=== PATIENT | female | born 1935 | race Caucasian/White ===

== ENCOUNTER 2016-10-27 00:08 | Inpatient (IN) ==
--- NOTE | 2016-10-27 00:35 | Emergency Department Note ---
Arrival - Arrival Chief Complaint: Fever Stated Complaint: Fever, abd pain ED Nursing Triage Note: C/C abd pain, fever, productive cough feeling bad started today. 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 Allergies/Adverse Reactions: Allergies Allergy/AdvReac Type Severity Reaction Status Date / Time codeine AdvReac Drowsy Verified 10/27/16 00:28 Home Medications: Home Medications Medication Instructions Recorded Confirmed Type Clorazepate [Tranxene] 7.5 mg PO BID 05/17/16 10/27/16 History Fluticasone Propionate 1 spray BOTH NARES DAILY 05/17/16 10/27/16 History [Fluticasone 50 mcg Nasal [place]] Insulin NPH/Regular 70/30 [HumuLIN 25 unit SUBCUT QAM 05/17/16 10/27/16 History 70/30] Levothyroxine Tab [Synthroid Tab] 112 mcg PO QPM 05/17/16 10/27/16 History Lisinopril 20 mg PO QPM 05/17/16 10/27/16 History Pentoxifylline [TRENtal] 400 mg PO TID 05/17/16 10/27/16 History Tramadol HCl/Acetaminophen 1 each PO Q6H PRN 05/17/16 10/27/16 History [Tramadol-Acetaminophn 37.5-325] Triamterene/Hydrochlorothiazid 1 each PO QPM 05/17/16 10/27/16 History [Triamterene-Hctz 37.5-25 mg Tb] Acetaminophen Tab [Tylenol Tab] 325 mg PO Q6H PRN #0 tablet 05/21/16 10/27/16 Rx Review of System - Review of System Constitutional: Present: chills, diaphoresis, fever. Absent: night sweats Eyes: Absent: redness, vision change, other Head/Ears/Nose/Throat: Absent: nasal drainage Respiratory: Absent: respiratory distress Cardiovascular: Present: other (Cough). Absent: palpitations, edema Gastrointestinal: Absent: nausea, vomiting, diarrhea Genitourinary female: Absent: dysuria, urgency Musculoskeletal: Present: lower back pain. Absent: joint swelling Skin: Absent: change in color, change in hair/nails, pruritus Neurological: Absent: numbness, paresthesias, confusion Psychiatric: Absent: suicidal thoughts, homicidal thoughts, auditory hallucinations Endocrine: Absent: heat intolerance, polydipsia, polyuria Hematological/Lymphatic: Absent: easy bruising, lymphadenopathy Allergic/Immunologic: Absent: urticaria, itchy eyes Medical,Surgical,& Family Hx - Medical History Cardio: History of: Hypertension Endocrine: History of: Diabetes Mellitus (IDDM), Thyroid Disorder Genitourinary: History of: Recurring Urinary Tract Infections Hematology: History of: Clotting Problems (DVT) - Surgical History Cardiac Surgeries: Sugical HX of: Femoral-Popliteal Bypass Graft Reproductive Surgeries: Surgical HX of;: Hysterectomy Orthopedic Surgeries: Surgical HX of;: Orthopedic Surgery (Left shoulder repair) , Total Knee Replacement (left) - Family History Family History: Reports;: Family Cancer, Family Hypertension Denies;: Family Anesthesia Reaction, Family Diabetes, Family Heart Disease, Family Psychiatric Problems, Family Stroke - Social History Smoking Status: Unknown if ever smoked Frequency of Alcohol Use: None Type of Drug Use: None Exam Vital Signs: Vital Signs Temperature 102.2 F H 10/27/16 01:05 Pulse Rate 122 H 10/27/16 00:10 Respiratory Rate 20 10/27/16 01:22 Blood Pressure 111/86 10/27/16 00:10 O2 Sat by Pulse Oximetry 91 L 10/27/16 00:10 - Eye Eye exam: Present: PERRL, EOMI - ENT ENT exam: Present: normal exam, normal oropharynx - Neck Neck exam: Present: normal inspection, full ROM - Chest Chest inspection: Present: normal inspection, symmetric chest wall rise - Respiratory Respiratory exam: Present: normal lung sounds bilaterally - Cardiovascular Cardiovascular exam: Present: tachycardia - Abdominal Exam Abdominal exam: Present: soft, normal bowel sounds - Extremities Exam Extremities exam: Present: normal inspection, full ROM - Back Exam Back exam: Present: normal inspection. Absent: CVA tenderness (R), CVA tenderness (L) - Neurological Exam Neurological exam: Present: alert, oriented X3 - Psychiatric Psychiatric exam: Present: normal affect, normal mood - Skin Skin exam: Present: warm, dry Course Course Narrative: The patient's clinical presentation and laboratory and x-ray workup indicates that she has sepsis with a source being pneumonia. She will be treated with IV fluids and antibiotics. The case was discussed with the hospitalist who agreed to admit her to the hospital. Results - Labs CBC & BMP: 10/27/16 00:34 10/27/16 00:34 Disposition Clinical Impression: Sepsis, Pneumonia Disposition: Still a Patient Additional Instructions: The patient's clinical presentation and laboratory and x-ray workup indicates that she has sepsis with a source being pneumonia. She will be treated with IV fluids and antibiotics. The case was discussed with the hospitalist who agreed to admit her to the hospital.
[2016-10-27] MEDS ORDERED: SODIUM CHLORIDE 0.9% 1,000 ML IV STA (00:40)
--- NOTE | 2016-10-27 00:44 | EKG Report ---
Stationary ECG Study [facility] ER Test Date: 10/27/2016 12:23:59 AM Pat Name: SANTOS CARTAGENA Department: Room: Gender: F Tobacco Sizer: : 1935 Requested by: Vazquez Carlos Order Number: [id number] Reading MD: YRN GREEN Intervals [place] Rate: 122 P: 49 LA: 182 QRS: -41 QRSD: 103 T: 59 QT: 315 QTc: 388 Interpretive Statements SINUS TACHYCARDIA with 1AVB LAFB Electronically Signed On 10-27-16 07:35:07 CDT by YRN GREEN [email or web address]
[2016-10-27] MEDS ORDERED: ACETAMINOPHEN 500 MG TABLET PO STA ×2 (00:58→01:04)
[2016-10-27] MEDS ORDERED: ACETAMINOPHEN 500 MG TABLET ONE (01:01)
[2016-10-27] MEDS ORDERED: PIPERACILLIN/TAZOBACTAM 3,375 MG in SODIUM CHLORIDE 0.9% 100 ML IV STA (01:04)
[2016-10-27 01:05] LABS: Basophils % 0.5 % (0.0-0.8); Hematocrit 36.3 VOL% (35.7-47.0); Hemoglobin 11.5 GM/DL (12.0-16.0); Immature Granulocytes % 0.2 %; Immature Granulocytes Absolute 0.01 #; Lymphocytes # 0.7 10*3/uL (1.4-4.0); Lymphocytes % 10.6 % (21.3-54.2); Mean Corpuscular HGB Conc 31.7 GM/DL (32-36); Mean Corpuscular Hemoglobin 26 PG (27-34); Mean Corpuscular Volume 83.3 FL (87-102); Mean Platelet Volume 11.4 FL (9.6-12.0); Monocytes # 0.4 10*3/uL (0.11-0.8); Monocytes % 5.9 % (1.7-12.7); Neutrophils # 5.1 10*3/uL (1.4-7.4); Neutrophils % 82.8 % (38.7-73.9); Platelet Count 138 T/CUMM (130-400); Red Blood Count 4.36 MC/CUMM (3.8-5.5); Red Cell Distribution Width 14.7 % (9.3-17.3); White Blood Count 6.1 T/CUMM (4-12)
[2016-10-27] MEDS ORDERED: VANCOMYCIN INJ 1,000 MG in SODIUM CHLORIDE 0.9% 250 ML IV STA (01:05)
[2016-10-27] MEDS ORDERED: PIPERACILLIN/TAZOBACTAM 3,375 MG VIAL IV ONE (01:12)
[2016-10-27] MEDS ORDERED: SODIUM CHLORIDE 0.9% 100 ML IV ONE (01:13)
[2016-10-27 01:24] LABS: Apearance,Urine Slightly Hazy (Clear); Bacteria,Urine Occasional /HPF (Few); Bilirubin,Urine Negative (Negative); Blood, Urine Negative (Negative); Glucose,Urine (UA) Negative (Negative); Granular Casts,Urine 4 /LPF (0-1); Hyaline Casts,Urine 10 /LPF (0-3); Ketones,Urine Negative (Negative); Mucus,Urine Occasional /LPF (Occasional); Nitrite,Urine Negative (Negative); Protein,Urine 30 MG/DL; RBC,Urine 2 /HPF (0-4); Squamous Epithelial Cell,Urine Occasional /HPF (0-10); Urine Color Yellow (Yellow); Urine Specific Gravity 1.014 (1.001-1.035); Urine Urobilinogen < 2.0 EU/DL (0.2-1.0); WBC,Urine 1 /HPF (0-6)
[2016-10-27 01:26] LABS: Albumin 2.6 G/DL (3.4-5.0); Bilirubin,Total 0.4 MG/DL (0.2-1.0); Calcium 8.8 MG/DL (8.5-10.1); Osmolality,Calculated 294.6 MOS/KG (273-304); Potassium 4.3 MMOL/L (3.5-5.1); Total Protein 6.3 G/DL (6.4-8.3)
[2016-10-27] MEDS ORDERED: VANCOMYCIN 1,000 MG VIAL ONE (02:19)
[2016-10-27 03:22] LABS: Band Neutrophils 5 % (0-10); Lymphocytes 13 % (20-55); Segmented Neutrophils 80 % (50-85)
[2016-10-27 03:27] LABS: Platelet Estimate Normal; Total Cells Counted 100
[2016-10-27] MEDS ORDERED: ALBUTEROL 1.25 MG/3 ML NEB RESP TX PRN (04:47)
[2016-10-27] MEDS ORDERED: ACETAMINOPHEN 325 MG TABLET PO PRN (04:47)
[2016-10-27] MEDS: LEVOFLOXACIN INJ 750 MG in PREMIX 1 EACH IV SCH (05:31)
--- NOTE | 2016-10-27 05:44 | Hospitalist History & Physical ---
Assessment and Plan - Time spent with patient Time spent with patient: Greater than 30 minutes (1) Sepsis Status: Acute Assessment and plan: Pending urine and blood cultures We will start on Levaquin and Zosyn to cover pneumonia and diverticulitis Blood work pending Currently afebrile Fluid resuscitation Current Visit: Yes (2) Pneumonia Status: Acute Current Visit: Yes (3) Diverticulitis Status: Acute Current Visit: Yes (4) Lesion of lung Status: Acute Assessment and plan: We will consult pulmonology Current Visit: Yes (5) Diabetes mellitus Status: Chronic Assessment and plan: We will restart home medication regimen once medications are confirmed Current Visit: No Qualifiers: Diabetes mellitus type: type 2 (6) Hypertension Status: Chronic Assessment and plan: We will restart medication regimen once home medications are confirmed Current Visit: No Qualifiers: Hypertension type: essential hypertension Qualified Code(s): I10 - Essential (primary) hypertension (7) Bladder tumor Status: Resolved Current Visit: No (8) Hypothyroidism Status: Chronic Assessment and plan: Will restart Synthroid once confirmed Current Visit: No History of Present Illness Chief complaint: fever and abdominal pain History of present illness: Called to the ER for Ms. Sanchez who is a 81 year old female who lives at home and presented to the ED tonight complaining of fever and abdominal pain. Patient said she vomited twice on Thursday but none on Thursday and has been having teeth chattering chills. No recorded temperature. Patient denies chest pain, shortness of breath, palpitations, weakness, dysuria, or diarrhea. She has a history of bladder cancer status post tumor removal, chronic low back pain , hypertension, heart murmur, hypothyroidism, diabetes. A CT chest abdomen and pelvis was performed which revealed pneumonia, a lesion to the upper lobe, and diverticulitis. She will be admitted into the ICU for closer monitoring due to her confusion and oxygen dependence. She received blood cultures and urine cultures. We will start her on Levaquin and Zosyn to cover pneumonia and diverticulitis. She received fluid resuscitation and routine blood work. Pulmonology will be consulted for the lesion in the upper lobe. Home Medications Medication Instructions Recorded Confirmed Type Clorazepate [Tranxene] 7.5 mg PO BID 05/17/16 10/27/16 History Fluticasone Propionate 1 spray BOTH NARES DAILY 05/17/16 10/27/16 History [Fluticasone 50 mcg Nasal [place]] Insulin NPH/Regular 70/30 [HumuLIN 25 unit SUBCUT QAM 05/17/16 10/27/16 History 70/30] Levothyroxine Tab [Synthroid Tab] 112 mcg PO QPM 05/17/16 10/27/16 History Lisinopril 20 mg PO QPM 05/17/16 10/27/16 History Pentoxifylline [TRENtal] 400 mg PO TID 05/17/16 10/27/16 History Tramadol HCl/Acetaminophen 1 each PO Q6H PRN 05/17/16 10/27/16 History [Tramadol-Acetaminophn 37.5-325] Triamterene/Hydrochlorothiazid 1 each PO QPM 05/17/16 10/27/16 History [Triamterene-Hctz 37.5-25 mg Tb] Acetaminophen Tab [Tylenol Tab] 325 mg PO Q6H PRN #0 tablet 05/21/16 10/27/16 Rx Allergies Allergy/AdvReac Type Severity Reaction Status Date / Time codeine AdvReac Drowsy Verified 10/27/16 00:28 Medical,Surgical,& Family Hx - Medical History Cardio: History of: Hypertension Endocrine: History of: Diabetes Mellitus (IDDM), Dyslipidemia, Thyroid Disorder Genitourinary: History of: Recurring Urinary Tract Infections, Genitourinary Cancer (bladder cancer) Musculoskeletal: History of: Musculoskeletal Problems (arthritis) Hematology: History of: Clotting Problems (DVT) - Surgical History Cardiac Surgeries: Sugical HX of: Femoral-Popliteal Bypass Graft Reproductive Surgeries: Surgical HX of;: Genitourinary Surgery (bladder growth removal), Hysterectomy Orthopedic Surgeries: Surgical HX of;: Orthopedic Surgery (Left shoulder repair) , Total Knee Replacement (left) - Family History Family History: Reports;: Family Cancer, Family Heart Disease (mother, brother) , Family Hypertension Denies;: Family Anesthesia Reaction, Family Diabetes, Family Psychiatric Problems, Family Stroke - Social History Smoking Status: Former smoker Have you smoked in the last 12 months: No Frequency of Alcohol Use: None Type of Drug Use: None Marital Status: Lives With:: Spouse Functional capacity: wheelchair bound - Constitutional Constitutional: Present: chills, fever(s), frequent falls. Absent: night sweats , weakness - EENT Nose, mouth and throat: Absent: sore throat - Cardiovascular Cardiovascular: Absent: chest pain at rest, chest pain with activity, dyspnea, edema, palpitations - Respiratory Respiratory: Absent: cough - Gastrointestinal Gastrointestinal: Present: abdominal pain (Left lower quadrant). Absent: diarrhea, heartburn, hematemesis, hematochezia, melena, nausea, vomiting - Genitourinary Genitourinary: Absent: abnormal vaginal bleeding Exam - Constitutional Vitals: Period Temp Pulse Resp BP Sys/Hensley Pulse Ox Last 24 Hr 102 F-102.2 F 122-122 20-20 111-111/86-86 91 General appearance: normal weight, no acute distress, other (Deconditioned) - Head Head exam: Present: normal inspection, normocephalic - Eye Eye exam: Present: EOMI Pupils: Present: CLAUDIA, normal accommodation - ENT ENT exam: Present: normal exam - Neck Neck exam: Present: normal inspection - Respiratory Respiratory exam: Present: clear to auscultation bilaterally, decreased breath sounds (Left lower lobe). Absent: accessory muscle use - Cardiovascular Cardiovascular exam: Present: regular rate and rhythm, systolic murmur - GI/Abdominal GI/Abdominal exam: Present: normal bowel sounds, firm, tenderness (Left lower quadrant), soft - Extremities Exam Extremities exam: Present: normal inspection, normal capillary refill, full ROM - Back Exam Back exam: Present: normal inspection - Neurological Exam Neurological exam: Present: alert (Oriented to person only. Able to answer most questions appropriately.). Absent: oriented X3 - Psychiatric Psychiatric exam: Present: flat affect - Skin Skin exam: Present: normal color, warm, dry, intact Results - Labs CBC & BMP: 10/27/16 00:34 10/27/16 00:34 Lab Results: I have reviewed the past 24 hour labs
[2016-10-27 06:20] LABS: Free T4 (Free Thyroxine) 1.49 NG/DL (0.76-1.46)
[2016-10-27 06:24] LABS: Troponin I Only 0.236 NG/ML (0.00-0.045)
--- NOTE | 2016-10-27 06:55 | Pulmonology Consult Note ---
Assessment and Plan (1) Bladder tumor Status: Resolved Assessment and plan: Had a transitional cell carcinoma removed from her bladder about [address] Gambino is following. 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 Current Visit: No (2) Sepsis Status: Acute Assessment and plan: She has received IV fluids and is on IV antibiotics. Pressure looks better. White blood count normal. Still has some tachycardia. Had fever to 102.2. Current Visit: Yes (3) Pneumonia Status: Acute Assessment and plan: Certainly appears to have a left lower lobe bronchopneumonia by CT scan. Getting Levaquin. Will add Zosyn Current Visit: Yes (4) Diverticulitis Status: Acute Assessment and plan: We will add Zosyn to the Levaquin. GI evaluation. Current Visit: Yes (5) Lesion of lung Status: Acute Assessment and plan: The right apical lung lesion is small and likely relatively old but do not have old films to compare. Can evaluate this once her acute illnesses controlled. Current Visit: Yes (6) Hypothyroidism Status: Chronic Assessment and plan: Looks like she may be on a little too much Synthroid. TSH is low and free T4 is slightly high. Reduce dose Current Visit: No (7) Obstructive sleep apnea Status: Acute Assessment and plan: This is based on clinical evaluation. She was lethargic. Now little more alert on facemask BiPAP. O2 sat is 100%. Will check ABGs and see if we can adjust O2. She is on 6 L +10/[address] Schilling is to see as well Current Visit: Yes History of Present Illness Chief complaint: Fever abdominal pain vomiting History of present illness: Ms. Sanchez is a 81 year old female who relates that she has been sick since Thursday. She comes in from home with fever and vomiting just going on a day or so however. She has a history of transurethral resection of a bladder cancer in May of this year. She is hypothyroid and is on Synthroid replacement. She is diabetic. She had a CT done in the emergency room showing probable diverticulitis, left lower lobe pneumonia, and a right apical lung lesion. There is not been a chest x-ray done on this admission or in the May admission. She is a former smoker Home Medications Medication Instructions Recorded Confirmed Type Clorazepate [Tranxene] 7.5 mg PO BID 05/17/16 10/27/16 History Fluticasone Propionate 1 spray BOTH NARES DAILY 05/17/16 10/27/16 History [Fluticasone 50 mcg Nasal [place]] Insulin NPH/Regular 70/30 [HumuLIN 25 unit SUBCUT QAM 05/17/16 10/27/16 History 70/30] Levothyroxine Tab [Synthroid Tab] 112 mcg PO QPM 05/17/16 10/27/16 History Lisinopril 20 mg PO QPM 05/17/16 10/27/16 History Pentoxifylline [TRENtal] 400 mg PO TID 05/17/16 10/27/16 History Tramadol HCl/Acetaminophen 1 each PO Q6H PRN 05/17/16 10/27/16 History [Tramadol-Acetaminophn 37.5-325] Triamterene/Hydrochlorothiazid 1 each PO QPM 05/17/16 10/27/16 History [Triamterene-Hctz 37.5-25 mg Tb] Acetaminophen Tab [Tylenol Tab] 325 mg PO Q6H PRN #0 tablet 05/21/16 10/27/16 Rx Allergies Allergy/AdvReac Type Severity Reaction Status Date / Time codeine AdvReac Drowsy Verified 10/27/16 00:28 12 point system: reviewed and no additional remarkable complaints except as stated - Constitutional Constitutional: Present: chills, fever(s), frequent falls - Gastrointestinal Gastrointestinal: Present: abdominal pain, nausea, vomiting Exam (Pulmonay) H&P - Constitutional Vitals: Period Temp Pulse Resp BP Sys/Hensley Pulse Ox Last 24 Hr 97.4 F-102.2 F 79-122 13-24 84-115/36-86 91-100 Exam: Temperature 102.2 last night. Afebrile this morning. Vital signs otherwise normal. Pupils react to light. Wearing facemask BiPAP. She is responsive. Neck is supple. Chest reveals some rales at the left base. Heart rapid rate regular rhythm no murmur. Abdomen soft. Bowel sounds present. Direct left lower quadrant tenderness noted. Extremities no clubbing cyanosis or edema. Calves nontender Medical,Surgical,& Family Hx - Medical History Cardio: History of: Hypertension Endocrine: History of: Diabetes Mellitus (IDDM), Dyslipidemia, Thyroid Disorder Genitourinary: History of: Recurring Urinary Tract Infections, Genitourinary Cancer (bladder cancer) Musculoskeletal: History of: Musculoskeletal Problems (arthritis) Hematology: History of: Clotting Problems (DVT) - Surgical History Cardiac Surgeries: Sugical HX of: Femoral-Popliteal Bypass Graft Reproductive Surgeries: Surgical HX of;: Genitourinary Surgery (bladder growth removal), Hysterectomy Orthopedic Surgeries: Surgical HX of;: Orthopedic Surgery (Left shoulder repair) , Total Knee Replacement (left) - Family History Family History: Reports;: Family Cancer, Family Heart Disease (mother, brother) , Family Hypertension Denies;: Family Anesthesia Reaction, Family Diabetes, Family Psychiatric Problems, Family Stroke - Social History Smoking Status: Former smoker Frequency of Alcohol Use: None Type of Drug Use: None Results - Labs CBC & BMP: 10/27/16 00:34 10/27/16 00:34 Lab Results: I have reviewed the past 24 hour labs - Diagnostic Findings Procedure: CT - chest: image reviewed by me (Left lower lobe infiltrate. Right apical lesion which is about 1 cm. No old CTs to compare.)
[2016-10-27] MEDS ORDERED: LEVOTHYROXINE 112 MCG TABLET PO SCH (07:00)
[2016-10-27] MEDS ORDERED: LEVOTHYROXINE 100 MCG TABLET PO SCH (07:05)
[2016-10-27 07:07] LABS: ABG Base Excess -2.1 MMOL/L (-2.5-2.5); ABG HCO3 22.7 MMOL/L (20-26); ABG Oxygen Saturation 98.8 % (95-100); ABG PCO2 44.1 MM HG (35-48); ABG PH 7.339 (7.35-7.45); ABG TCO2 21.9 MMOL/L (23-27); Pt O2 Delivery Device BIPAP
[2016-10-27] MEDS ORDERED: SODIUM CHLORIDE 0.45% 1,000 ML IV SCH (07:30)
--- NOTE | 2016-10-27 07:40 | CT Report ---
Exam: CT chest with intravenous contrast Clinical History: 81-year-old female with fever, possible sepsis Technique: Axial computed tomography images of the chest with intravenous contrast. The CT exam was performed using one or more of the following dose reduction techniques: Automated exposure control, adjustment of the mA and/or kV according to patient size, or use of iterative reconstruction technique. Contrast: 100 mL of Omnipaque 350 administered intravenously. Comparison: No relevant prior studies available Findings: Lungs: No mass. Interstitial thickening within the lung bases with hazy groundglass opacities, probably and bronchial plugging. Pleural spaces: No pneumothorax. No significant effusion Heart: No cardiomegaly. Atheromatous plaquing along pulmonary vessels. No pericardial effusion Mediastinum: Intact. Normal trachea Bones/joints: Intact. No acute fracture. No dislocation. Spondylitic changes throughout the spinal axis. Soft tissues: No radiopaque foreign body Vasculature: Intact. Atheromatous plaquing. Lymph nodes: No enlarged lymph nodes Impression: 1. Interstitial and groundglass opacifications within the lung bases, likely infectious process given associated bronchial plugging. Consider aspiration. Exam: CT abdomen and pelvis with intravenous contrast Exam date: October 27, 2016 at 0139 hours Clinical History: 81-year-old female with sepsis, fever Technique: Axial computed tomography images of the abdomen and pelvis with intravenous contrast. All CT scans at this facility use one or more dose reduction techniques. Automated exposure control, MA/KV adjustment per patient size (including targeted exam Square dose is matched to indication) or iterative reconstruction technique Contrast: 100 mL of Omnipaque 350 administered intravenously Comparison: May 18, 2016 Findings: Lower thorax: No acute pathologic findings at the lung bases Abdomen: Liver: Chronic granulomatous changes Gallbladder and bile ducts: Gallbladder is contracted. No calcified stones. No ductal dilatation. Pancreas: Pancreas is normal. Spleen: Granulomatous changes are noted. Adrenals: No adrenal mass. Kidneys and ureters: Kidneys are normal in size, morphology and enhancement. Stable right renal cyst. No hydronephrosis. No ureteral calculus. Stomach and bowel: Multiple diverticula along the distal colon. Mild mesocolonic stranding along the sigmoid colon. Appendix: Nonvisualized. No secondary signs to suggest appendicitis. Pelvis: Bladder: Unremarkable Reproductive: Prior hysterectomy. Abdomen and pelvis: Intraperitoneal space: No pneumoperitoneum. No significant intraperitoneal fluid Bones/joints: No acute osseous abnormality. Scoliosis with extensive spondylitic changes throughout the visualized spinal axis Soft tissues: No mass Vasculature: No aortic aneurysm. Diffuse atheromatous plaquing is noted. Occlusion of the within the thin bypass graft Lymph nodes: No adenopathy Impression: 1. Diverticulosis coli. Mild mesocolonic stranding along the sigmoid colon, scarring versus early diverticulitis 2. Occluded femoral-femoral bypass graft PROCEDURE INTERPRETED AT [facility] DEPARTMENT OF RADIOLOGY Final Report Signed by: Peña Ornelas
[2016-10-27] MEDS ORDERED: INSULIN NPH/REGULAR 70/30 100 UNIT/ML SUBCUT SCH (09:00)
[2016-10-27] MEDS: PIPERACILLIN/TAZOBACTAM 3,375 MG in SODIUM CHLORIDE 0.9% 100 ML IV SCH ×2 (10:00→17:13)
[2016-10-27 14:05] LABS: Troponin I Only 0.209 NG/ML (0.00-0.045)
[2016-10-27] MEDS ORDERED: SODIUM CHLORIDE 0.9% 500 ML IV ONE (15:28)
--- NOTE | 2016-10-27 15:45 | Hospitalist Progress Note ---
Assessment and Plan (1) Pneumonia Status: Acute Assessment and plan: Pulmonary was consulted. Continue Levaquin and Zosyn. We will get speech evaluation tomorrow. Current Visit: Yes (2) Hypothyroidism Status: Acute Assessment and plan: TSH is low and free T4 is high we will hold levothyroxine Current Visit: Yes (3) Diabetes mellitus Status: Chronic Assessment and plan: Blood sugars need to be checked every 6 hours I asked him to get a stat blood sugar if not seen but it has been checked since this morning, hold insulin Current Visit: No Qualifiers: Diabetes mellitus type: type 2 (4) Hypertension Status: Chronic Assessment and plan: Patient is hypotensive we will give normal saline bolus and run normal saline at 75 ML's per hour Current Visit: No Qualifiers: Hypertension type: essential hypertension Qualified Code(s): I10 - Essential (primary) hypertension (5) Sepsis Status: Acute Assessment and plan: Continue normal saline, lactic acid less than 2, blood cultures 2 pending, continue Zosyn and Levaquin Current Visit: Yes (6) Diverticulitis Status: Acute Assessment and plan: Continue Zosyn. Current Visit: Yes (7) Obstructive sleep apnea Status: Acute Assessment and plan: Patient will most likely not be tolerant of the sleep study at the age of [address]. [address] Schilling to evaluate. I have changed her from BiPAP to CPAP as her CO2 was not elevated. Current Visit: Yes Hospitalist: Subjective Interval history: Spoke with patient's son who lives in [facility]. His name is Logan Sanchez. His phone number is area code [phone]. We have switch patient over to CPAP. I have spoke with his son and he is okay with what we are doing thus far. Her living well states not to prolong her life and we have instituted a DNR. We will continue the CPAP for now and reevaluate tomorrow. Patient has deteriorated over the last few months after a fall. She was recently hospitalized in [place] but has not done well since discharge. We will reimage her hips to to ensure she does not have an occult fracture. She did have home health checking on her. She continues to be too lethargic to protect her airway at this time. I have spoken with her but he has wanted me to really have her son make decisions. He will be flying in from [place] when the weather permits. Exam - Constitutional Vitals: Period Temp Pulse Resp BP Sys/Hensley Pulse Ox Last 24 Hr 97.4 F-102.2 F 65-122 11-24 79-115/36-86 91-100 Exam: Heart Rate-[RRR] Lungs-[diminished not taking deep breaths] GI-[+bs soft, NT] Ext-[no edema] Neuro [cannot assess, too lethargic. psych too lethargic to assess General [moderate acute distress] Results - Labs CBC & BMP: 10/27/16 00:34 10/27/16 00:34 Lab Results: I have reviewed the past 24 hour labs Labs: Serial troponins mildly elevated, TSH is low. - Diagnostic Findings Procedure: CT Abdomen and Pelvis: report reviewed by me (Diverticulitis), CT - chest: report reviewed by me (Left lower lobe bronchopneumonia) Quality Measures - VTE Contraindication to Mechanical VTE Prophylaxis: Local Inflammation
[2016-10-27 16:21] LABS: Troponin I Only 0.244 NG/ML (0.00-0.045)
[2016-10-27] MEDS: SODIUM CHLORIDE 0.9% 1,000 ML IV SCH (16:31)
--- NOTE | 2016-10-27 16:37 | Sleep Medicine Consult ---
Assessment and Plan (1) Obstructive sleep apnea Status: Acute Assessment and plan: It is certainly possible that this patient has sleep apnea based on her history and physical findings. She is critically ill at present and we are unable to assess her currently. I would recommend setting her up for outpatient polysomnography after stabilization medically. We can follow-up in the sleep clinic with her evaluation. Thank you for this consult. Current Visit: Yes (2) Hypertension Status: Chronic Assessment and plan: The prevalence rate for obstructive sleep apnea patients with hypertension is 35 %. That rate can be as high as 80% in patients who require 4 or more medications for blood pressure control. Current Visit: No Qualifiers: Hypertension type: essential hypertension Qualified Code(s): I10 - Essential (primary) hypertension (3) Diabetes mellitus Status: Chronic Assessment and plan: The prevalence rate for obstructive sleep apnea in patients with type 2 diabetes can be as high as 86%. Those patients with moderate to severe obstructive sleep apnea are at a greater risk for diabetic nephropathy and neuropathy. Compliance with CPAP therapy for these patients can lead to improvement in glycemic control and improvement in insulin sensitivity. Current Visit: No Qualifiers: Diabetes mellitus type: type 2 History of Present Illness Chief complaint: Sleep apnea History of present illness: Ms. Sanchez is a 81 year old female admitted with sepsis from left lower lobe pneumonia. She has significant past medical history of diabetes and hypothyroidism. She lives at home with her . During the course of her evaluation, there was concern for sleep apnea. She is on CPAP at present and has been on BiPAP. She has had significant issues with hypoxia and is required BiPAP or CPAP therapy to maintain normal O2 sats. She is much more alert this afternoon according to nurses. She does acknowledge a history of snoring and sometimes will awaken from sleep short of breath. She has never been told that she stops breathing during her sleep. She does have problems with nocturia nightly and with daytime fatigue and sleepiness. Home Medications Medication Instructions Recorded Confirmed Type Clorazepate [Tranxene] 7.5 mg PO BID 05/17/16 10/27/16 History Fluticasone Propionate 1 spray BOTH NARES DAILY 05/17/16 10/27/16 History [Fluticasone 50 mcg Nasal Holiday] Insulin NPH/Regular 70/30 [HumuLIN 25 unit SUBCUT QAM 05/17/16 10/27/16 History 70/30] Levothyroxine Tab [Synthroid Tab] 112 mcg PO QPM 05/17/16 10/27/16 History Lisinopril 20 mg PO QPM 05/17/16 10/27/16 History Pentoxifylline [TRENtal] 400 mg PO TID 05/17/16 10/27/16 History Tramadol HCl/Acetaminophen 1 each PO Q6H PRN 05/17/16 10/27/16 History [Tramadol-Acetaminophn 37.5-325] Triamterene/Hydrochlorothiazid 1 each PO QPM 05/17/16 10/27/16 History [Triamterene-Hctz 37.5-25 mg Tb] Acetaminophen Tab [Tylenol Tab] 325 mg PO Q6H PRN #0 tablet 05/21/16 10/27/16 Rx Allergies Allergy/AdvReac Type Severity Reaction Status Date / Time codeine AdvReac Drowsy Verified 10/27/16 00:28 Review of systems: Otherwise unremarkable from a sleep medicine standpoint. Exam (Pulmonay) H&P - Constitutional Vitals: Period Temp Pulse Resp BP Sys/Hensley Pulse Ox Last 24 Hr 97.4 F-102.2 F 65-122 11-24 79-115/36-86 91-100 Exam: She is alert and responsive. She does answer most all questions appropriately. She seems to be slightly confused though. She is holding her right arm over her head. Pupils equal round reactive to light and accommodation. Extraocular movements intact. Oropharynx with a class IV Mallampati exam and dry oral mucosa. Neck supple without adenopathy or thyromegaly. No supraclavicular adenopathy is noted. Chest with fair air movement and no significant wheeze or rhonchi. Cardiac exam reveals a regular rhythm without murmur or gallop. Abdomen soft nontender extremities without significant edema. Neurologically, she is grossly intact. Medical,Surgical,& Family Hx - Medical History Cardio: History of: Hypertension Endocrine: History of: Diabetes Mellitus (IDDM), Dyslipidemia, Thyroid Disorder Genitourinary: History of: Recurring Urinary Tract Infections, Genitourinary Cancer (bladder cancer) Musculoskeletal: History of: Musculoskeletal Problems (arthritis) Hematology: History of: Clotting Problems (DVT) - Surgical History Cardiac Surgeries: Sugical HX of: Femoral-Popliteal Bypass Graft Reproductive Surgeries: Surgical HX of;: Genitourinary Surgery (bladder growth removal), Hysterectomy Orthopedic Surgeries: Surgical HX of;: Orthopedic Surgery (Left shoulder repair) , Total Knee Replacement (left) - Family History Family History: Reports;: Family Cancer, Family Heart Disease (mother, brother) , Family Hypertension Denies;: Family Anesthesia Reaction, Family Diabetes, Family Psychiatric Problems, Family Stroke - Social History Smoking Status: Former smoker Frequency of Alcohol Use: None Type of Drug Use: None Results - Labs CBC & BMP: 10/27/16 00:34 10/27/16 00:34 Lab Results: I have reviewed the past 24 hour labs Quality Measures - VTE Contraindication to Mechanical VTE Prophylaxis: Local Inflammation
[2016-10-27] MEDS: ALBUTEROL/IPRATROPIUM 3 ML NEB RESP TX SCH (20:02)
--- NOTE | 2016-10-27 20:08 | XRay Report ---
History: Injury. Recent fall. Unable to walk Date: 10/27/2016 Study: Bilateral hips 2 views Comparison exam: Left femur x-ray May 17, 2016 No acute fracture or dislocation is seen. There is osteopenia. There is mild osteophyte formation and joint space narrowing associated with either hip. Impression: No definite acute fracture. Mild osteoarthritis. Osteopenia PROCEDURE INTERPRETED AT [facility] DEPARTMENT OF RADIOLOGY Final Report Signed by: Dr. Christen Solares
[2016-10-28] MEDS: ALBUTEROL/IPRATROPIUM 3 ML NEB RESP TX SCH ×4 (01:11→19:28)
[2016-10-28] MEDS: PIPERACILLIN/TAZOBACTAM 3,375 MG in SODIUM CHLORIDE 0.9% 100 ML IV SCH ×3 (01:58→16:58)
[2016-10-28 04:19] LABS: Basophils % 0.4 % (0.0-0.8); Hematocrit 31.5 VOL% (35.7-47.0); Hemoglobin 9.8 GM/DL (12.0-16.0); Immature Granulocytes % 0.2 %; Immature Granulocytes Absolute 0.02 #; Lymphocytes % 23.7 % (21.3-54.2); Mean Corpuscular HGB Conc 31.1 GM/DL (32-36); Mean Corpuscular Hemoglobin 26 PG (27-34); Mean Corpuscular Volume 84.9 FL (87-102); Mean Platelet Volume 10.9 FL (9.6-12.0); Monocytes # 0.5 10*3/uL (0.11-0.8); Monocytes % 5.5 % (1.7-12.7); Neutrophils # 5.8 10*3/uL (1.4-7.4); Neutrophils % 70.2 % (38.7-73.9); Platelet Count 109 T/CUMM (130-400); Red Blood Count 3.71 MC/CUMM (3.8-5.5); Red Cell Distribution Width 15.2 % (9.3-17.3); White Blood Count 8.2 T/CUMM (4-12)
[2016-10-28 04:58] LABS: Alanine Aminotransferase 18 U/L (13-56); Albumin 2.1 G/DL (3.4-5.0); Alkaline Phosphatase 76 U/L (45-117); Aspartate Amino Transferase 32 U/L (0-37); Bilirubin,Total < 0.39 MG/DL (0.2-1.0); Blood Urea Nitrogen 24 MG/DL (7-18); Glucose 97 MG/DL (74-106); Osmolality,Calculated 295.4 MOS/KG (273-304); Potassium 4.4 MMOL/L (3.5-5.1); Sodium 147 MMOL/L (136-145); Total Protein 5.5 G/DL (6.4-8.3)
[2016-10-28] MEDS: SODIUM CHLORIDE 0.9% 1,000 ML IV SCH ×2 (06:13→09:33)
--- NOTE | 2016-10-28 06:59 | Pulmonology Progress Note ---
Pulmonary - PN: Subj Interval history: This 81-year-old white female is now more alert she is confused. She has a clear-cut lower lobe pneumonia and diverticulitis and is on antibiotics. She thinks that she traveled to [place] yesterday. Exam (Progress Note) - Constitutional Vitals: Period Temp Pulse Resp BP Sys/Hensley Pulse Ox Last 24 Hr 98.0 F-98.5 F 65-89 11-24 79-172/35-90 93-100 Exam: She is alert responsive but confused. Vital signs normal. Pupils react to light. Throat is clear. Neck supple no bruits. Chest reveals some bilateral rhonchi. Otherwise clear. Heart normal rate and rhythm no murmurs. Abdomen soft no masses. Mild direct left lower quadrant tenderness. Extremities no clubbing cyanosis edema. Calves nontender. 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 Gambino is following. 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 Current Visit: No (2) Sepsis Status: Acute Assessment and plan: She has received IV fluids and is on IV antibiotics. Pressure looks better. White blood count normal. Still has some tachycardia. Had fever to 102.2. 10/28/2016 septic signs are improved. Patient more alert but continues to be confused. Not sure about her pre-morbid mental status. Current Visit: Yes (3) Pneumonia Status: Acute Assessment and plan: Certainly appears to have a left lower lobe bronchopneumonia by CT scan. Getting Levaquin. Will add Zosyn. I note she is already on Zosyn. 10/28/2016 adequately oxygenated and afebrile. Continuing Levaquin and Zosyn. Current Visit: Yes (4) Diverticulitis Status: Acute Assessment and plan: We will add Zosyn to the Levaquin. GI evaluation. 10/28/2016 continuing antibiotics. GI following. Current Visit: Yes (5) Lesion of lung Status: Acute Assessment and plan: The right apical lung lesion is small and likely relatively old but do not have old films to compare. Can evaluate this once her acute illnesses controlled. 10/28/2016 this will await improvement from acute pulmonary and colon infections. Current Visit: Yes (6) Hypothyroidism Status: Chronic Assessment and plan: Looks like she may be on a little too much Synthroid. TSH is low and free T4 is slightly high. Reduce dose Current Visit: No (7) Obstructive sleep apnea Status: Acute Assessment and plan: This is based on clinical evaluation. She was lethargic. Now little more alert on facemask BiPAP. O2 sat is 100%. Will check ABGs and see if we can adjust O2. She is on 6 L +10/[address] Schilling is to see as well 10/28/2016 Dr. Peña plans to evaluate this given time. Patient is alert and has good O2 sat on nasal oxygen this morning Current Visit: Yes
[2016-10-28 08:06] LABS: Allen Test Positive
[2016-10-28 08:08] LABS: ABG Base Excess -3.1 MMOL/L (-2.5-2.5); ABG HCO3 22.1 MMOL/L (20-26); ABG Oxygen Saturation 96.6 % (95-100); ABG PCO2 40.2 MM HG (35-48); ABG PH 7.359 (7.35-7.45); ABG TCO2 23.4 MMOL/L (23-27)
--- NOTE | 2016-10-28 09:08 | XRay Report ---
Portable chest Exam date: 10/28/2016 4:00 AM Indication: Shortness of breath, cough Comparison: CT performed previous day at 0135 hours Findings: Cardiomediastinal contours are normal. Lungs are clear bilaterally. No acute osseous abnormalities. Remote right rib fracture/deformity is noted. Left shoulder arthroplasty appears intact. Visualized upper abdomen demonstrates no acute pathology. Impression: No acute cardiopulmonary findings PROCEDURE INTERPRETED AT [facility] DEPARTMENT OF RADIOLOGY Final Report Signed by: Peña Ornelas
--- NOTE | 2016-10-28 11:57 | Hospitalist Progress Note ---
Assessment and Plan (1) Pneumonia Status: Acute Assessment and plan: Dr. Delarosa following, Continue Levaquin and Zosyn. We will get speech evaluation today Current Visit: Yes (2) Hypothyroidism Status: Acute Assessment and plan: cont to hold levothyroxine Current Visit: Yes (3) Diabetes mellitus Status: Chronic Assessment and plan: BS better today, change to q ac and q hs. Insulin sliding scale started, will tolerated pured Current Visit: No Qualifiers: Diabetes mellitus type: type 2 (4) Hypertension Status: Chronic Assessment and plan: Hypotension has resolved we will switch to half-normal saline. Current Visit: No Qualifiers: Hypertension type: essential hypertension Qualified Code(s): I10 - Essential (primary) hypertension (5) Sepsis Status: Acute Assessment and plan: Resolving with antibiotics Current Visit: Yes (6) Diverticulitis Status: Acute Assessment and plan: Continue Zosyn. Current Visit: Yes (7) Obstructive sleep apnea Status: Acute Assessment and plan: Dr. Schilling has seen her and recommends an outpatient sleep study Current Visit: Yes (8) Hypernatremia Status: Acute Assessment and plan: Continue half-normal saline Current Visit: Yes Hospitalist: Subjective Interval history: Patient is much more alert and responsive today. She is off her CPAP and doing well. Her blood pressure is stable today. We will move her out of the CCU. I have already spoken with her son and given him an update. He is currently still in [place]. Patient was pleasantly confused and does have baseline dementia according to her son. He would like her to go to a swing bed in [place] for rehab. Patient running high fevers yesterday which are better today. Exam - Constitutional Vitals: Period Temp Pulse Resp BP Sys/Hensley Pulse Ox Last 24 Hr 97.5 F-98.5 F 65-96 11-24 96-172/35-98 93-98 Exam: Heart Rate-[tachy] Lungs-[bilateral rhonchi] GI-[+bs soft, NT] Ext-[no edema] Neuro [alert and oriented to name today, cannot cooperate with motor exam yet psych pleasantly demented General [no acute distress] Results - Labs CBC & BMP: 10/28/16 03:41 10/28/16 03:41 Lab Results: I have reviewed the past 24 hour labs Labs: Urine and blood cultures negative no growth - Diagnostic Findings Procedure: Chest x-ray: report reviewed by me (Negative chest x-ray) Quality Measures - VTE Contraindication to Mechanical VTE Prophylaxis: Local Inflammation
[2016-10-28] MEDS ORDERED: DEXTROSE 50% 25 GM/50 ML SYRINGE IV PRN (12:04)
[2016-10-28] MEDS ORDERED: GLUCAGON 1 MG VIAL IM PRN (12:04)
[2016-10-28] MEDS: SODIUM CHLORIDE 0.45% 1,000 ML IV SCH (13:40)
[2016-10-28] MEDS: INSULIN LISPRO 100 UNIT/ML SUBCUT SCH ×2 (16:59→22:14)
[2016-10-28] MEDS: CLORAZEPATE 3.75 MG TABLET PO SCH (21:14)
[2016-10-28] MEDS: MUPIROCIN 2% OINT 22 GM TUBE TOP SCH (21:14)
[2016-10-28] MEDS: PENTOXIFYLLINE 400 MG TABLET PO SCH (21:14)
[2016-10-29] MEDS: ALBUTEROL/IPRATROPIUM 3 ML NEB RESP TX SCH ×4 (00:39→20:31)
[2016-10-29] MEDS: PIPERACILLIN/TAZOBACTAM 3,375 MG in SODIUM CHLORIDE 0.9% 100 ML IV SCH ×3 (01:40→17:40)
[2016-10-29] MEDS: SODIUM CHLORIDE 0.45% 1,000 ML IV SCH (03:00)
[2016-10-29] MEDS: LEVOFLOXACIN INJ 750 MG in PREMIX 1 EACH IV SCH (05:48)
--- NOTE | 2016-10-29 07:15 | Pulmonology Progress Note ---
Pulmonary - PN: Subj Interval history: This 81-year-old white female is now more alert she is confused. She has a clear-cut lower lobe pneumonia and diverticulitis and is on antibiotics. She thinks that she traveled to [place] yesterday. 10/29/2016 patient's chest x-ray looks almost clear but we know she has a left basilar infiltrate seen on CT. O2 sat is 95% on room air. Patient is responsive but confused. Cultures have been negative. We will stop Levaquin as this sometimes can add to confusion. Continue with Zosyn. Probably needs another 3 days of antibiotics for her pneumonia. Could change to oral antibiotics if she is discharged to swing bed. Exam (Progress Note) - Constitutional Vitals: Period Temp Pulse Resp BP Sys/Hensley Pulse Ox Last 24 Hr 97.4 F-98.1 F 83-109 12- 112-180/50-99 91-99 Exam: She is alert responsive but confused. Vital signs normal. O2 sat 95% on room air. Pupils react to light. Throat is clear. Neck supple no bruits. Chest reveals some bilateral rhonchi. Otherwise clear. Heart normal rate and rhythm no murmurs. Abdomen soft no masses. Mild direct left lower quadrant tenderness. Extremities no clubbing cyanosis edema. Calves nontender. Results - Labs CBC & BMP: 10/28/16 03:41 10/28/16 03:41 Lab Results: I have reviewed the past 24 hour labs - Diagnostic Findings Procedure: Chest x-ray: image reviewed by me (Minimal left basilar infiltrate essentially clear. 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 Gambino is following. 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 Current Visit: No (2) Sepsis Status: Acute Assessment and plan: She has received IV fluids and is on IV antibiotics. Pressure looks better. White blood count normal. Still has some tachycardia. Had fever to 102.2. 10/28/2016 septic signs are improved. Patient more alert but continues to be confused. Not sure about her pre-morbid mental status. 10/29/2016 sepsis controlled. Patient is confused but has history of dementia. Current Visit: Yes (3) Pneumonia Status: Acute Assessment and plan: Certainly appears to have a left lower lobe bronchopneumonia by CT scan. Getting Levaquin. Will add Zosyn. I note she is already on Zosyn. 10/28/2016 adequately oxygenated and afebrile. Continuing Levaquin and Zosyn. 10/29/2016 afebrile, O2 sat 95% on room air, chest x-ray almost clear minimal left basilar infiltrate. Stop Levaquin because of possible effects on [employer] function. Needs about 3 more days of antibiotics. Could change to oral Augmentin if need be if she goes to swing bed. Current Visit: Yes (4) Diverticulitis Status: Acute Assessment and plan: We will add Zosyn to the Levaquin. GI evaluation. 10/28/2016 continuing antibiotics. GI following. Current Visit: Yes (5) Lesion of lung Status: Acute Assessment and plan: The right apical lung lesion is small and likely relatively old but do not have old films to compare. Can evaluate this once her acute illnesses controlled. 10/28/2016 this will await improvement from acute pulmonary and colon infections. 10/29/2016. Her mental status I would not be in a hurry to evaluate the right apical nodule. Would have her come back for a PET scan outpatient. Current Visit: Yes (6) Hypothyroidism Status: Chronic Assessment and plan: Looks like she may be on a little too much Synthroid. TSH is low and free T4 is slightly high. Reduce dose Current Visit: No (7) Obstructive sleep apnea Status: Acute Assessment and plan: This is based on clinical evaluation. She was lethargic. Now little more alert on facemask BiPAP. O2 sat is 100%. Will check ABGs and see if we can adjust O2. She is on 6 L +10/[address] Schilling is to see as well 10/28/2016 Dr. Schilling plans to evaluate this given time. Patient is alert and has good O2 sat on nasal oxygen this morning Current Visit: Yes
--- NOTE | 2016-10-29 07:45 | XRay Report ---
Portable chest Exam date: 10/29/2016 4:00 AM Indication: Shortness of breath, cough Comparison: Previous day at 0314 hours Findings: Cardiomediastinal contours are stable. Lungs are clear bilaterally. No acute osseous abnormalities. Left shoulder arthroplasty is again noted. Visualized upper abdomen demonstrates no acute pathology. Impression: No acute cardiopulmonary findings PROCEDURE INTERPRETED AT [facility] DEPARTMENT OF RADIOLOGY Final Report Signed by: Peña Ornelas
[2016-10-29] MEDS: MUPIROCIN 2% OINT 22 GM TUBE TOP SCH ×2 (08:41→21:34)
[2016-10-29] MEDS: INSULIN LISPRO 100 UNIT/ML SUBCUT SCH ×4 (08:42→21:34)
[2016-10-29] MEDS: CLORAZEPATE 3.75 MG TABLET PO SCH ×2 (08:49→21:34)
[2016-10-29] MEDS: PENTOXIFYLLINE 400 MG TABLET PO SCH ×3 (08:50→21:34)
--- NOTE | 2016-10-29 11:25 | Physician Query Form ---
CLICK EDIT DOCUMENT TO SELECT QUERY ANSWER --> OK --> SIGN Angélica Guzman RN Clinical Senior Dot Net Developer W) [phone] (f) [phone] [email or web address]: Make your selection(s) from the choices in EACH section by typing an "x" and enter comments in the comment section. Please use your independent medical judgment in providing your response. This request does not imply that any particular answer is desired or expected. CLINICAL INDICATORS: (Providers should not edit this section) Based on documentation of "Acute Sepsis" "Acute PNA" "Acute Diverticulitis" Acute hypernatremia" "admitted to ICU for closer monitoring due to her confusion and oxygen dependence" "Responsive but confused" "Thinks that she traveled to [place] yesterday" Treated with Oxygen, IV fluids changed to 1/2 NS infusion, IV Zosyn, and IV Vancomycin. ACUITY: ( ) Acute ( x) Acute on Chronic ( ) Chronic ( ) Clinically unable to determine NATURE: ( ) Delirium due to general medical condition (x ) Dementia ( ) Encephalopathy ( ) Unconscious ( ) Transient level of awareness ( ) Comatose ( ) Locked-in State ( ) Persistent Vegetative State ( ) Other, please specify: ( ) Clinically unable to determine Please indicate the underlying cause of the altered mental status (CHECK ALL THAT APPLY): ( ) Baseline dementia (x ) Alzheimer's disease ( ) Parkinson's disease ( ) Lewy body dementia ( ) Acute stroke ( ) Late effect of stroke ( ) Reactive (from emotional stress, psychological trauma) ( ) Due to narcotics/other drugs ( ) Post procedural delirium ( ) Transient ischemic attack ( ) Generalized cerebral edema ( ) Normal pressure hydrocephalus ( ) Psychiatric illness ( ) Other, please specify: ( ) Clinically unable to determine Please indicate if there is an infection, sepsis, dehydration or specific organ failure that is causing the dementia. Be specific with clarifying the relationship between that process and the mental status change. COMMENTS: PLEASE ALSO DOCUMENT RESPONSE IN PROGRESS NOTES AND/OR DISCHARGE SUMMARY Use of terms such as suspected, likely, or probable (associated with a specific diagnosis that is being evaluated, monitored, or treated as if it exists) are acceptable and can be restated in the discharge summary if not ruled out. MTDD
--- NOTE | 2016-10-29 12:17 | Hospitalist Progress Note ---
Assessment and Plan (1) Pneumonia Status: Acute Assessment and plan: Dr. Delarosa following, Continue Levaquin and Zosyn. Speech has seen her and does not see any overt signs and symptoms of aspiration recommend small bites and sips with chopped meats Current Visit: Yes (2) Hypothyroidism Status: Acute Assessment and plan: recheck free t4 in am Current Visit: Yes (3) Diabetes mellitus Status: Chronic Assessment and plan: BS too high continue insulin sliding scale. Her eating is not reliable. Current Visit: No Qualifiers: Diabetes mellitus type: type 2 (4) Hypertension Status: Chronic Assessment and plan: coreg 6.25 mg po bid Current Visit: No Qualifiers: Hypertension type: essential hypertension Qualified Code(s): I10 - Essential (primary) hypertension (5) Sepsis Status: Acute Assessment and plan: Resolving with antibiotics Current Visit: Yes (6) Diverticulitis Status: Acute Assessment and plan: Continue Zosyn. Current Visit: Yes (7) Obstructive sleep apnea Status: Acute Assessment and plan: Dr. Schilling has seen her and recommends an outpatient sleep study but I think it will make her more agitated Current Visit: Yes (8) Hypernatremia Status: Acute Assessment and plan: bmp in am Current Visit: Yes Hospitalist: Subjective Interval history: Patient is very demented and continues to be more agitated and confused. Patient is not an ICU patient she was supposed to move out to the floor yesterday but they did not have any beds again I put in transfer orders again today waiting for a bed. Patient needs a sitter when she is transferred to the floor. Exam - Constitutional Vitals: Period Temp Pulse Resp BP Sys/Hensley Pulse Ox Last 24 Hr 97.8 F-98.4 F 83-109 13-27 112-180/50-97 91-99 Exam: Heart Rate-[tachy] Lungs-[clear] GI-[+bs soft, NT] Ext-[no edema] Neuro [will not cooperate with an exam very agitated psych agitated and confused General [no acute distress] Results - Labs CBC & BMP: 10/28/16 03:41 10/28/16 03:41 Lab Results: I have reviewed the past 24 hour labs Labs: Urine culture negative downgrowth, blood cultures 2 negative no - Diagnostic Findings Procedure: Chest x-ray: report reviewed by me (Nothing acute) Quality Measures - VTE Contraindication to Mechanical VTE Prophylaxis: Local Inflammation
[2016-10-29] MEDS: CARVEDILOL 6.25 MG TABLET PO SCH ×2 (12:47→21:34)
[2016-10-30] MEDS: PIPERACILLIN/TAZOBACTAM 3,375 MG in SODIUM CHLORIDE 0.9% 100 ML IV SCH ×3 (00:55→18:08)
[2016-10-30] MEDS: ALBUTEROL/IPRATROPIUM 3 ML NEB RESP TX SCH ×4 (03:06→19:12)
[2016-10-30 06:16] LABS: Basophils % 0.5 % (0.0-0.8); Hematocrit 34.4 VOL% (35.7-47.0); Hemoglobin 11.2 GM/DL (12.0-16.0); Immature Granulocytes % 0.3 %; Immature Granulocytes Absolute 0.02 #; Lymphocytes # 1.5 10*3/uL (1.4-4.0); Lymphocytes % 20.8 % (21.3-54.2); Mean Corpuscular HGB Conc 32.6 GM/DL (32-36); Mean Corpuscular Hemoglobin 27 PG (27-34); Mean Corpuscular Volume 81.3 FL (87-102); Mean Platelet Volume 10.9 FL (9.6-12.0); Monocytes # 0.4 10*3/uL (0.11-0.8); Neutrophils # 5.4 10*3/uL (1.4-7.4); Neutrophils % 73.4 % (38.7-73.9); Platelet Count 165 T/CUMM (130-400); Red Blood Count 4.23 MC/CUMM (3.8-5.5); Red Cell Distribution Width 15.1 % (9.3-17.3); White Blood Count 7.4 T/CUMM (4-12)
[2016-10-30 07:02] LABS: Calcium 8.9 MG/DL (8.5-10.1); Magnesium 1.7 MG/DL (1.8-2.4); Osmolality,Calculated 290.7 MOS/KG (273-304); Potassium 4.4 MMOL/L (3.5-5.1)
[2016-10-30] MEDS: INSULIN LISPRO 100 UNIT/ML SUBCUT SCH ×4 (07:36→22:18)
[2016-10-30] MEDS: CLORAZEPATE 3.75 MG TABLET PO SCH (08:08)
[2016-10-30] MEDS: MUPIROCIN 2% OINT 22 GM TUBE TOP SCH ×2 (08:08→22:18)
[2016-10-30] MEDS: CARVEDILOL 6.25 MG TABLET PO SCH ×3 (08:08→22:21)
[2016-10-30] MEDS: PENTOXIFYLLINE 400 MG TABLET PO SCH ×4 (08:08→22:21)
--- NOTE | 2016-10-30 08:38 | Pulmonology Progress Note ---
Pulmonary - PN: Subj Interval history: This 81-year-old white female is now more alert she is confused. She has a clear-cut lower lobe pneumonia and diverticulitis and is on antibiotics. She thinks that she traveled to [place] yesterday. 10/29/2016 patient's chest x-ray looks almost clear but we know she has a left basilar infiltrate seen on CT. O2 sat is 95% on room air. Patient is responsive but confused. Cultures have been negative. We will stop Levaquin as this sometimes can add to confusion. Continue with Zosyn. Probably needs another 3 days of antibiotics for her pneumonia. Could change to oral antibiotics if she is discharged to swing bed. 10/30/2016 patient now on 5 E. Continues to be confused but a little bit less agitated. Apparently using CPAP at night. Exam (Progress Note) - Constitutional Vitals: Period Temp Pulse Resp BP Sys/Hensley Pulse Ox Last 24 Hr 97.4 F-100.3 F 85-109 12-23 107-166/76-99 94-100 Exam: She is alert responsive but confused. Vital signs normal. O2 sat 95% on room air. Pupils react to light. Throat is clear. Neck supple no bruits. Chest reveals some bilateral rhonchi. Otherwise clear. Heart normal rate and rhythm no murmurs. Abdomen soft no masses. Mild direct left lower quadrant tenderness. Extremities no clubbing cyanosis edema. Calves nontender. Little change from yesterday but less agitated. 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 Gambino is following. 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 Current Visit: No (2) Sepsis Status: Resolved Assessment and plan: She has received IV fluids and is on IV antibiotics. Pressure looks better. White blood count normal. Still has some tachycardia. Had fever to 102.2. 10/28/2016 septic signs are improved. Patient more alert but continues to be confused. Not sure about her pre-morbid mental status. 10/29/2016 sepsis controlled. Patient is confused but has history of dementia. 10/30/2016 no signs of sepsis now. Mental status is apparently back to her baseline dementia. Current Visit: Yes (3) Pneumonia Status: Acute Assessment and plan: Certainly appears to have a left lower lobe bronchopneumonia by CT scan. Getting Levaquin. Will add Zosyn. I note she is already on Zosyn. 10/28/2016 adequately oxygenated and afebrile. Continuing Levaquin and Zosyn. 10/29/2016 afebrile, O2 sat 95% on room air, chest x-ray almost clear minimal left basilar infiltrate. Stop Levaquin because of possible effects on UNDER CUTTER function. Needs about 3 more days of antibiotics. Could change to oral Augmentin if need be if she goes to swing bed. 10/30/2016 chest x-ray looks okay. Again needs 2 more days of antibiotics would contact him by mouth if she were to go to a swing bed or [facility]. Current Visit: Yes (4) Diverticulitis Status: Acute Assessment and plan: We will add Zosyn to the Levaquin. GI evaluation. 10/28/2016 continuing antibiotics. GI following. 10/30/2016 defer to GI as to further management of her diverticulitis. Current Visit: Yes (5) Lesion of lung Status: Acute Assessment and plan: The right apical lung lesion is small and likely relatively old but do not have old films to compare. Can evaluate this once her acute illnesses controlled. 10/28/2016 this will await improvement from acute pulmonary and colon infections. 10/29/2016. Her mental status I would not be in a hurry to evaluate the right apical nodule. Would have her come back for a PET scan outpatient. 10/30/2016 based on her age and mental status do not think we need to be aggressive on working up the right apical nodule. Would suggest doing a PET scan in 4-6 weeks. Current Visit: Yes (6) Hypothyroidism Status: Chronic Assessment and plan: Looks like she may be on a little too much Synthroid. TSH is low and free T4 is slightly high. Reduce dose 10/30/2016 we have reduced her dose of Synthroid a little Current Visit: No (7) Obstructive sleep apnea Status: Acute Assessment and plan: This is based on clinical evaluation. She was lethargic. Now little more alert on facemask BiPAP. O2 sat is 100%. Will check ABGs and see if we can adjust O2. She is on 6 L +10/[address] Schilling is to see as well 10/28/2016 Dr. Schilling plans to evaluate this given time. Patient is alert and has good O2 sat on nasal oxygen this morning Current Visit: Yes
--- NOTE | 2016-10-30 10:58 | Hospitalist Progress Note ---
Assessment and Plan (1) Pneumonia Status: Acute Assessment and plan: Continue Zosyn Current Visit: Yes (2) Hypothyroidism Status: Acute Assessment and plan: Restart levothyroxine Current Visit: Yes (3) Diabetes mellitus Status: Chronic Assessment and plan: BS controlled Current Visit: No Qualifiers: Diabetes mellitus type: type 2 (4) Hypertension Status: Chronic Assessment and plan: Continue Coreg Current Visit: No Qualifiers: Hypertension type: essential hypertension Qualified Code(s): I10 - Essential (primary) hypertension (5) Sepsis Status: Resolved Assessment and plan: Resolved Current Visit: Yes (6) Diverticulitis Status: Acute Assessment and plan: Asymptomatic and eating well continue Zosyn. Current Visit: Yes (7) Obstructive sleep apnea Status: Acute Assessment and plan: Continue CPAP at night Current Visit: Yes (8) Hypernatremia Status: Acute Assessment and plan: Resolved Current Visit: Yes Hospitalist: Subjective Interval history: Patient confused but less agitated. Sleeping when I came into the room. Physical therapy was sent to work with her. 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 Called her son with an update last night. Exam - Constitutional Vitals: Period Temp Pulse Resp BP Sys/Hensley Pulse Ox Last 24 Hr 97.4 F-100.3 F 84-109 12-23 107-166/76-99 94-99 Exam: Heart Rate-[RRR] Lungs-[clear] GI-[+bs soft, NT] Ext-[no edema] Neuro [sleeping psych sleeping unable to evaluate General [no acute distress] Results - Labs CBC & BMP: 10/30/16 05:06 10/30/16 05:06 Lab Results: I have reviewed the past 24 hour labs Labs: Blood cultures 2 negative, urine culture negative - Diagnostic Findings Procedure: Chest x-ray: report reviewed by me (Chest x-ray clear) Quality Measures - VTE Contraindication to Mechanical VTE Prophylaxis: Local Inflammation
[2016-10-30] MEDS ORDERED: MAGNESIUM SULF RIDER 2 GM in PREMIX 1 EACH IV ONE (11:00)
--- NOTE | 2016-10-30 12:24 | Sleep Medicine Progress Note ---
Assessment and Plan (1) Obstructive sleep apnea Status: Acute Assessment and plan: We will not proceed with any further sleep evaluation at this time. I did discuss this with Dr. Zamora and she is in agreement. Current Visit: Yes (2) Hypertension Status: Chronic Current Visit: No Qualifiers: Hypertension type: essential hypertension Qualified Code(s): I10 - Essential (primary) hypertension (3) Diabetes mellitus Status: Chronic Current Visit: No Qualifiers: Diabetes mellitus type: type 2 Sleep Medicine Subjective Interval history: Patient does look much better than she was when I saw her originally. However she still is poorly responsive. I do not think she would be a good candidate for further sleep evaluation. Exam (Progress Note) - Constitutional Vitals: Period Temp Pulse Resp BP Sys/Hensley Pulse Ox Last 24 Hr 97.4 F-99.3 F 84-100 12-20 107-164/76-99 94-99 Exam: Patient awake and will respond with a grunt. HEENT otherwise unremarkable. Neck supple without adenopathy chest with symmetrical breath sounds without wheeze or rhonchi. Cardiac exam reveals regular rhythm. Abdomen soft nontender extremities without calf tenderness or clubbing. Neurologically, she is poorly cooperative and responsive. Results - Labs CBC & BMP: 10/30/16 05:06 10/30/16 05:06 Lab Results: I have reviewed the past 24 hour labs
--- NOTE | 2016-10-30 13:44 | Case Mgmt Physician Query Form ---
TB Signs and Symptoms Screening ([place]) INSTRUCTIONS: To be completed annually on residents/staff with a significant Tuberculin Skin Test (TST) upon admission/hire or a prior significant TST. To be completed on all staff at hire. Please respond to each listed symptom with an (X) in either the "YES" or "NO" box. Do you currently have any of the following symptoms: YES NO ( ) ( x) A cough If yes, is it: ( ) Productive ( ) Non- productive ( ) ( x) Hemoptysis (spitting up blood) ( ) ( x) Chest pains ( ) (x ) Weight Loss ( ) (x ) Fever ( ) ( x) Night Sweats ( x) ( ) Weakness ( ) ( x) Loss of Appetite ( ) ( x) Difficulty Breathing If you answered YES" to any of the above questions, how long have symptoms been present? Comments: If you have any questions, please contact me. Thank you, Margoth GRUBER P: [phone] F: [phone] E: [email or web address]
[2016-10-30] MEDS ORDERED: TUBERCULIN SKIN TEST 0.1 ML SYRINGE INTRADERM ONE (13:51)
--- NOTE | 2016-10-30 18:01 | CT Report ---
History: Altered mental status Date: 10/30/2016 Study: CT head without contrast Comparison exam: No previous head CT currently available Transaxial CT sections were obtained through the brain without contrast. The ventricles are midline in position without evidence of hydrocephalus. There is no mass or area of parenchymal hemorrhage. There is no gross CT evidence of acute cortical stroke. There is mild to moderate diffuse cerebral atrophy. There is a mild amount of patchy ill-defined decreased density in the periventricular white matter without mass effect compatible with changes of small vessel disease. 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 There is moderate distal carotid artery calcification. There is no extra-axial hematoma. The sinuses are generally clear. There is no obvious skull fracture. Impression: No acute intracranial process. Chronic ischemic changes. This CT exam was performed using one or more the following dose reduction techniques: Automated exposure control, adjustment of the MA and/or KV according to patient size, or use of iterative reconstruction technique. PROCEDURE INTERPRETED AT [facility] DEPARTMENT OF RADIOLOGY Final Report Signed by: Dr. Christen Solares
[2016-10-30] MEDS ORDERED: CLORAZEPATE 3.75 MG TABLET PO SCH (21:00)
[2016-10-31] MEDS: ALBUTEROL/IPRATROPIUM 3 ML NEB RESP TX SCH ×4 (00:36→19:30)
[2016-10-31] MEDS: PIPERACILLIN/TAZOBACTAM 3,375 MG in SODIUM CHLORIDE 0.9% 100 ML IV SCH ×3 (01:07→17:54)
[2016-10-31 05:56] LABS: Calcium 8.7 MG/DL (8.5-10.1); Magnesium 2.3 MG/DL (1.8-2.4); Osmolality,Calculated 294.3 MOS/KG (273-304)
[2016-10-31] MEDS: LEVOTHYROXINE 112 MCG TABLET PO SCH (07:00)
--- NOTE | 2016-10-31 08:57 | Pulmonology Progress Note ---
Pulmonary - PN: Subj Interval history: This 81-year-old white female is now more alert she is confused. She has a clear-cut lower lobe pneumonia and diverticulitis and is on antibiotics. She thinks that she traveled to [place] yesterday. 10/29/2016 patient's chest x-ray looks almost clear but we know she has a left basilar infiltrate seen on CT. O2 sat is 95% on room air. Patient is responsive but confused. Cultures have been negative. We will stop Levaquin as this sometimes can add to confusion. Continue with Zosyn. Probably needs another 3 days of antibiotics for her pneumonia. Could change to oral antibiotics if she is discharged to swing bed. 10/30/2016 patient now on 5 E. Continues to be confused but a little bit less agitated. Apparently using CPAP at night. 10/31/2016 patient continues to exhibit her dementia. Less agitated and she is eating. She is less short of breath. Sleep apnea will not be pursued further due to her confusion. She has a mild left lower lobe pneumonia. Could stop antibiotics anytime for that. Also being treated for diverticulitis. From pulmonary standpoint, I will sign off. Please call if needed further. Exam (Progress Note) - Constitutional Vitals: Period Temp Pulse Resp BP Sys/Hensley Pulse Ox Last 24 Hr 97.5 F-99.1 F 55-92 18-20 94-146/40-78 89-99 Exam: She is alert responsive calm but confused. Vital signs normal. O2 sat 95% on room air. Pupils react to light. Throat is clear. Neck supple no bruits. Chest reveals some bilateral rhonchi. Otherwise clear. Heart normal rate and rhythm no murmurs. Abdomen soft no masses. Mild direct left lower quadrant tenderness. Extremities no clubbing cyanosis edema. Calves nontender. 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 Gambino is following. 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 Current Visit: No (2) Sepsis Status: Resolved Assessment and plan: She has received IV fluids and is on IV antibiotics. Pressure looks better. White blood count normal. Still has some tachycardia. Had fever to 102.2. 10/28/2016 septic signs are improved. Patient more alert but continues to be confused. Not sure about her pre-morbid mental status. 10/29/2016 sepsis controlled. Patient is confused but has history of dementia. 10/30/2016 no signs of sepsis now. Mental status is apparently back to her baseline dementia. 10/31/2016 this is been controlled. Due to diverticulitis and left lower lobe pneumonia. Current Visit: Yes (3) Pneumonia Status: Acute Assessment and plan: Certainly appears to have a left lower lobe bronchopneumonia by CT scan. Getting Levaquin. Will add Zosyn. I note she is already on Zosyn. 10/28/2016 adequately oxygenated and afebrile. Continuing Levaquin and Zosyn. 10/29/2016 afebrile, O2 sat 95% on room air, chest x-ray almost clear minimal left basilar infiltrate. Stop Levaquin because of possible effects on AGENCY OPERATOR function. Needs about 3 more days of antibiotics. Could change to oral Augmentin if need be if she goes to swing bed. 10/30/2016 chest x-ray looks okay. Again needs 2 more days of antibiotics would contact him by mouth if she were to go to a swing bed or [facility]. 10/31/2016 can stop antibiotics tomorrow. I will sign off. Please call if needed further. Current Visit: Yes (4) Diverticulitis Status: Acute Assessment and plan: We will add Zosyn to the Levaquin. GI evaluation. 10/28/2016 continuing antibiotics. GI following. 10/30/2016 defer to GI as to further management of her diverticulitis. Current Visit: Yes (5) Lesion of lung Status: Acute Assessment and plan: The right apical lung lesion is small and likely relatively old but do not have old films to compare. Can evaluate this once her acute illnesses controlled. 10/28/2016 this will await improvement from acute pulmonary and colon infections. 10/29/2016. Her mental status I would not be in a hurry to evaluate the right apical nodule. Would have her come back for a PET scan outpatient. 10/30/2016 based on her age and mental status do not think we need to be aggressive on working up the right apical nodule. Would suggest doing a PET scan in 4-6 weeks. 10/31/2016 right apical nodule can be reviewed in 6 weeks with a PET scan. Patient's mental status would keep us from being aggressive on this. Current Visit: Yes (6) Hypothyroidism Status: Chronic Assessment and plan: Looks like she may be on a little too much Synthroid. TSH is low and free T4 is slightly high. Reduce dose 10/30/2016 we have reduced her dose of Synthroid a little Current Visit: No (7) Obstructive sleep apnea Status: Chronic Assessment and plan: This is based on clinical evaluation. She was lethargic. Now little more alert on facemask BiPAP. O2 sat is 100%. Will check ABGs and see if we can adjust O2. She is on 6 L +10/[address] Schilling is to see as well 10/28/2016 Dr. Schilling plans to evaluate this given time. Patient is alert and has good O2 sat on nasal oxygen this morning Current Visit: Yes
[2016-10-31] MEDS: INSULIN LISPRO 100 UNIT/ML SUBCUT SCH ×4 (09:23→21:13)
[2016-10-31] MEDS: MUPIROCIN 2% OINT 22 GM TUBE TOP SCH ×2 (09:26→21:14)
[2016-10-31] MEDS: PENTOXIFYLLINE 400 MG TABLET PO SCH ×3 (09:26→21:14)
[2016-10-31] MEDS: CARVEDILOL 6.25 MG TABLET PO SCH ×2 (09:26→21:14)
--- NOTE | 2016-10-31 10:59 | Discharge Summary ---
Hospital Course - Hospital Course Hospital Course: Ms. Sanchez who is a 81 year old female who lives at home but was recently discharged from [facility]. After she left for us to was put on multiple medications and patient has been relatively bedridden since then. We are thinking this is a medication problem. Patient was brought in by with complaints of fever, shortness of breath and abdominal pain. Patient was extremely lethargic on admission and was started on CPAP for difficulty breathing. Dr. Delarosa was consulted and chest, abdomen and pelvic CT ordered. Patient was diagnosed with sepsis and started on Levaquin and Zosyn. Patient was noted to have a left lower lobe bronchial pneumonia by CT scan and diverticulitis. Patient is rather lethargic based on her home medicines. Which were held. She is more awake and alert and participating with physical therapy. Sepsis is completely resolved. Patient does have hypothyroidism but was on a little too much Synthroid. We will reduce her dose of Synthroid 100 mcg. Both the and the son are very involved. Head CT was negative. Her plans to take her home after rehab. She is mildly anemic but has never had to receive blood. She does have obstructive sleep apnea but she would not be a good candidate for a sleep study or treatment as both Dr. Schilling and I dont feel that she would be compliant with cpap. We have changed her from Zosyn to Augmentin today. Patient is more alert and joking with us today. Her blood pressure is controlled. Her blood sugars have been controlled without giving her insulin. Patient alert and cooperative and no longer requires sitters. She actively is participating with both pt and ot. plans for her to return home after rehab. Son is flying down from [place] for support. Patient stable for discharge. - Time spent with patient Time with patient DS: Greater than 30 minutes (45 min) Diagnosis - Discharge Diagnosis (1) Pneumonia Status: Acute (2) Hypothyroidism Status: Acute (3) Diabetes mellitus Status: Chronic (4) Hypertension Status: Chronic (5) Sepsis Status: Resolved (6) Diverticulitis Status: Acute (7) Obstructive sleep apnea Status: Chronic (8) Hypernatremia Status: Acute Discharge Plan - Discharge Data Disposition: Disch/Xfer to [facility] Condition at Discharge: Stable Discharge Diet: diabetic diet (mechanical soft) Activity: resume usual activities as tolerated Hygiene: no restrictions Weight Bearing at Discharge: full weight bearing - Discharge Medications New Carvedilol [Coreg] 6.25 mg PO BID tablet Glucagon 1 mg IM PRN PRN vial PRN Reason: Hypoglycemia w/o IV access Insulin Lispro [HumaLOG] See Protocol SUBCUT ACHS unit Mupirocin 2% Oint [Bactroban 2% Oint] 1 applic TOP BID applic Amoxicillin/Clav Tab [Augmentin Tab] 875 mg PO BID #20 tablet Dextrose 50% [D50] 25 gm IV PRN PRN syringe PRN Reason: Hypoglycemia with IV access Continue Pentoxifylline [TRENtal] 400 mg PO TID Levothyroxine Tab [Synthroid Tab] 112 mcg PO QPM Discontinued Tramadol HCl/Acetaminophen [Tramadol-Acetaminophn 37.5-325] 1 each PO Q6H PRN PRN Reason: Pain Clorazepate [Tranxene] 7.5 mg PO BID Lisinopril 20 mg PO QPM Insulin NPH/Regular 70/30 [HumuLIN 70/30] 25 unit SUBCUT QAM Fluticasone Propionate [Fluticasone 50 mcg Nasal [place]] 1 spray BOTH NARES DAILY Triamterene/Hydrochlorothiazid [Triamterene-Hctz 37.5-25 mg Tb] 1 each PO QPM Acetaminophen Tab [Tylenol Tab] 325 mg PO Q6H PRN #0 tablet PRN Reason: Pain - Follow Up or Referral - Forms/Instructions Exam - Constitutional Vitals: Period Temp Pulse Resp BP Sys/Hensley Pulse Ox Last 24 Hr 97.5 F-99.1 F 55-92 18-20 94-146/40-78 89-99 General appearance: normal weight, no acute distress - Respiratory Respiratory exam: Present: clear to auscultation bilaterally. Absent: rhonchi, wheezes - Cardiovascular Cardiovascular exam: Present: regular rate and rhythm. Absent: systolic murmur - GI/Abdominal GI/Abdominal exam: Present: normal bowel sounds, soft. Absent: mass, tenderness - Extremities Exam Extremities exam: Present: normal inspection, normal capillary refill - Neurological Exam Neurological exam: Present: alert Discharge Results Procedures and tests throughout hospitalization: Pending Orders 10/27/16 00:40 Blood Culture Stat 10/31/16 09:26 MR head/brain wo con Stat 11/01/16 04:00 BMP w/ Mg [Basic Metabolic Panel w/Mg] IN AM Labs on day of discharge: Labs from last 24 hours 10/31/16 10/30/16 10/30/16 04:34 21:52 16:00 Sodium 148 H Potassium 4.0 Chloride 114 H Carbon Dioxide 28 Anion Gap 10.0 BUN 17 Creatinine 1.50 H GFR Calculation 37 BUN/Creatinine Ratio 11.00 Glucose 89 POC Glucose 231 H 196 H Calculated Osmolality 294.3 Calcium 8.7 Magnesium 2.3 Preliminary micro results at discharge 10/27/16 00:40 Blood Culture - Preliminary Blood No growth at 3 days 10/27/16 00:34 Blood Culture - Preliminary Blood No growth at 3 days DS: Provider Date of admission: 10/27/16 04:06 Primary care physician: Ck Greene MD Attending physician on admission: Sea Echavarria MD Consults: 10/27/16 04:47 Consult to Physician [CONS] Routine Comment: lesion upper lobe Consulting Provider: Richi Montes 10/27/16 10:46 Consult to Case Mgmt/Social Srvs [CONS] Routine Reason for Case Mgmt/Social Srvs: Swingbed/SNF/Prison Consult Comment: lexis 10/27/16 15:39 Consult to Occupational Therapy [CONS] Routine Reason for Occupational Therapy: Evaluate and Treat Consult to Physical Therapy [CONS] Routine Reason for Physical Therapy: Evaluate and Treat 10/30/16 11:02 Consult to Occupational Therapy [CONS] Routine Reason for Occupational Therapy: Evaluate and Treat Consult to Physical Therapy [CONS] Routine Reason for Physical Therapy: Evaluate and Treat Discharging clinician: Roxanna Zamora MD
--- NOTE | 2016-10-31 13:36 | Magnetic Resonance Report ---
MRI brain without contrast Indication: Altered mental status Comparison: CT brain 30 October 2016 Technique: Axial sagittal and coronal imaging of the brain is performed without contrast. T1, T2, FLAIR and diffusion weighted sequences are performed. Findings: No evidence of restricted diffusion seen. No evidence of intracranial hemorrhage, mass, mass effect or midline shift is seen. There is moderate to severe diffuse cerebral atrophy. There are areas of white matter T2 signal hyperintensity in both cerebral hemispheres, periventricular and subcortical in location likely related to chronic microvascular change. Remaining brain parenchyma has normal signal and differentiation. The ventricles and cisterns are appropriate in caliber. Posterior fossa, mid brain and pituitary gland appear within normal limits. No evidence of cranial or skull base abnormality seen. Impression: No evidence of acute infarct or acute process demonstrated PROCEDURE INTERPRETED AT [facility] DEPARTMENT OF RADIOLOGY Final Report Signed by: Dr. Hollis Damon
[2016-10-31] MEDS ORDERED: ONDANSETRON 4 MG/2 ML VIAL IV PRN (20:15)
[2016-11-01] MEDS: ALBUTEROL/IPRATROPIUM 3 ML NEB RESP TX SCH ×4 (00:59→20:06)
[2016-11-01] MEDS: PIPERACILLIN/TAZOBACTAM 3,375 MG in SODIUM CHLORIDE 0.9% 100 ML IV SCH ×3 (02:28→18:20)
[2016-11-01] MEDS: LEVOTHYROXINE 112 MCG TABLET PO SCH (06:11)
[2016-11-01 07:37] LABS: Calcium 8.6 MG/DL (8.5-10.1); Osmolality,Calculated 294.7 MOS/KG (273-304); Potassium 4.3 MMOL/L (3.5-5.1)
[2016-11-01] MEDS: INSULIN LISPRO 100 UNIT/ML SUBCUT SCH ×4 (08:49→21:04)
[2016-11-01] MEDS: MUPIROCIN 2% OINT 22 GM TUBE TOP SCH ×2 (08:50→21:05)
[2016-11-01] MEDS: PENTOXIFYLLINE 400 MG TABLET PO SCH ×3 (08:51→21:05)
[2016-11-01] MEDS: CARVEDILOL 6.25 MG TABLET PO SCH ×2 (08:51→21:05)
--- NOTE | 2016-11-01 15:24 | Hospitalist Progress Note ---
Assessment and Plan (1) Acute confusional state Status: Acute Assessment and plan: The reaction to drugs that would been given to the patient. I am informed she had another large list of medication that has since been taken off. Looked at the list of home medications there was no suggestion of abrupt discontinuation of SSRI. Current Visit: Yes (2) Urinary tract infection Status: Acute Assessment and plan: Treated and resolved Current Visit: No Qualifiers: Urinary tract infection type: acute cystitis Hematuria presence: with hematuria Qualified Code(s): N30.01 - Acute cystitis with hematuria (3) Diabetes mellitus Status: Chronic Assessment and plan: Optimally treated Current Visit: No Qualifiers: Diabetes mellitus type: type 2 Diabetes mellitus complication status: with unspecified complications (4) Sepsis Status: Resolved Assessment and plan: Resolved Current Visit: Yes Hospitalist: Subjective Interval history: Patient is seen interviewed and examined and chart has been reviewed. Patient was actually discharged yesterday however the receiving [facility] facility could not get her yesterday. Areas that can do so is Thursday. For that reason the patient is still here. Notice on my assessment is that she is pleasantly confused. However she is able to tell where she is she remembers the provider who saw her before I came home. Knows the date. Is the president of [employer]. Exam - Constitutional Vitals: Period Temp Pulse Resp BP Sys/Hensley Pulse Ox Last 24 Hr 97.0 F-98.5 F 67-78 18-20 155-199/74-87 91-96 General appearance: over weight - Head Head exam: Present: normocephalic, atraumatic - Eye Eye exam: Present: EOMI, other (She tends to look to the right. MRI done yesterday was nondiagnostic for acute infarct) Pupils: Present: CLAUDIA - Respiratory Respiratory exam: Present: clear to auscultation bilaterally - Cardiovascular Cardiovascular exam: Present: regular rate and rhythm - Extremities Exam Extremities exam: Present: full ROM - Neurological Exam Neurological exam: Present: other (Pleasantly confused) - Psychiatric Psychiatric exam: Present: other (Recently confused) - Skin Skin exam: Present: normal color, warm, dry Results - Labs CBC & BMP: 10/30/16 05:06 11/01/16 06:53 Lab Results: I have reviewed the past 24 hour labs Quality Measures - VTE Contraindication to Mechanical VTE Prophylaxis: Local Inflammation Specialty Discharge - Follow Up or Referrals
[2016-11-02] MEDS: PIPERACILLIN/TAZOBACTAM 3,375 MG in SODIUM CHLORIDE 0.9% 100 ML IV SCH ×3 (02:52→18:25)
[2016-11-02] MEDS: ALBUTEROL/IPRATROPIUM 3 ML NEB RESP TX SCH ×5 (02:55→23:59)
[2016-11-02] MEDS: LEVOTHYROXINE 112 MCG TABLET PO SCH (06:09)
[2016-11-02] MEDS: PENTOXIFYLLINE 400 MG TABLET PO SCH ×3 (09:03→20:54)
[2016-11-02] MEDS: MUPIROCIN 2% OINT 22 GM TUBE TOP SCH ×2 (09:03→20:54)
[2016-11-02] MEDS: CARVEDILOL 6.25 MG TABLET PO SCH ×2 (09:03→20:54)
[2016-11-02] MEDS: INSULIN LISPRO 100 UNIT/ML SUBCUT SCH ×4 (09:03→20:54)
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
[2016-11-03] MEDS: PIPERACILLIN/TAZOBACTAM 3,375 MG in SODIUM CHLORIDE 0.9% 100 ML IV SCH (03:07)
[2016-11-03] MEDS: LEVOTHYROXINE 112 MCG TABLET PO SCH (06:08)
[2016-11-03] MEDS: ALBUTEROL/IPRATROPIUM 3 ML NEB RESP TX SCH (07:20)
[2016-11-03 07:56] VITALS: BP 182/69
[2016-11-03] MEDS: PENTOXIFYLLINE 400 MG TABLET PO SCH (09:34)
[2016-11-03] MEDS: CARVEDILOL 6.25 MG TABLET PO SCH (09:34)
[2016-11-03] MEDS: MUPIROCIN 2% OINT 22 GM TUBE TOP SCH (09:35)
[2016-11-03] MEDS: INSULIN LISPRO 100 UNIT/ML SUBCUT SCH (09:36)
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
== END 2016-11-03 12:19 | DRG 871 ==
LOC: EDBD → EDUNIT# → N.ED 00:08 → N.EDINP 04:06 → SUATTDRO 04:06 → N.CC 04:47 → N.5E 10-29 20:48
PROVIDERS: ADMIT Internal Medicine; ATTEND Internal Medicine Infectious Disease